=== PATIENT | female | born 1995 | race Caucasian/White ===

== ENCOUNTER 2020-04-15 09:08 | Emergency (ER) | payer OTHER ==
[2020-04-15 11:35] LABS: SARS-COV-2 RT PCR NEGATIVE (NEGATIVE)
--- NOTE | 2020-04-15 13:42 | ER ---
Nurse's Notes [facility] Name: Dolores Riojas Age: 24 yrs Sex: Female : 1995 Arrival Date: 04/15/2020 Time: 09:11 Bed 25 Private MD: Diagnosis: Acute upper respiratory infection, unspecified Presentation: 04/15 09:51 Chief complaint: Patient states: stuffy nose started Monday and fever last night Tmas dm5 101. Coronavirus screen: Client denies travel out of the [place] in the last 14 days. congestion, fever, Client presents with at least one sign or symptom that may indicate coronavirus-19. Standard/surgical mask placed on the client. Ebola Screen: Patient negative for fever greater than or equal to 101.5 degrees Fahrenheit, and additional compatible Ebola Virus Disease symptoms Patient denies exposure to infectious person. Patient denies travel to an Ebola-affected area in the 21 days before illness onset. No symptoms or risks identified at this time. Initial Sepsis Screen: Does the patient meet any 2 criteria? No. Patient's initial sepsis screen is negative. Does the patient have a suspected source of infection? No. Patient's initial sepsis screen is negative. Risk Assessment: Do you want to hurt yourself or someone else? Patient reports no desire to harm self or others. Onset of symptoms was April 12, 2020. 09:51 Method Of Arrival: Ambulatory dm5 09:51 Acuity: JUSTINE 3 dm5 Triage Assessment: 13:00 General: Appears in no apparent distress. Behavior is calm, cooperative. dm5 Historical: - Allergies: 09:59 Percocet; dm5 - Immunization history:: Adult Immunizations up to date. - Social history:: Smoking status: Patient denies any tobacco usage or history of. Screenin:00 Abuse screen: Denies threats or abuse. Denies injuries from another. Nutritional dm5 screening: No deficits noted. Tuberculosis screening: No symptoms or risk factors identified. Fall Risk None identified. Assessment: 12:00 Reassessment: Patient appears in no apparent distress at this time. No changes from dm5 previously documented assessment. Patient and/or family updated on plan of care and expected duration. Pain level reassessed. Patient is alert, oriented x 3, equal unlabored respirations, skin warm/dry/pink. Pain: Denies pain. Neuro: No deficits noted. Cardiovascular: No deficits noted. Respiratory: Airway is patent Respiratory effort is even, unlabored, Breath sounds are clear. EENT: Throat is pink. Vital Signs: 10:03 Resp 20; Temp 97.3; Pulse Ox 100% ; dm5 ED Course: 09:11 Patient arrived in ED. ds1 09:21 Brenton May MD is Attending Physician. kdr 09:59 Triage completed. dm5 12:00 Patient has correct armband on for positive identification. dm5 12:00 No provider procedures requiring assistance completed. Patient did not have IV access dm5 during this emergency room visit. 12:13 Claudia Callahan, RN is Primary Nurse. dm5 13:00 Arm band placed on Patient placed in an exam room. dm5 Administered Medications: No medications were administered Outcome: 12:00 Discharged to home ambulatory. dm5 12:00 Condition: good 12:00 Discharge instructions given to patient, Instructed on discharge instructions, Demonstrated understanding of instructions, follow-up care. 13:41 Discharge ordered by . kdr 14:40 Patient left the ED. dm5 Signatures: Claudia Callahan, RN RN dm5 Brenton May MD MD [facility] Eileen Yeboah ds1 Meka Zarate, RN RN iw Corrections: (The following items were deleted from the chart) 12:31 12:31 Arm band placed on iw iw
--- NOTE | 2020-04-15 13:42 | EDPHYS ---
Physician Documentation [facility] Name: Dolores Riojas Age: 24 yrs Sex: Female : 1995 Arrival Date: 04/15/2020 Time: 09:11 Bed 25 Private MD: ED Physician Brenton May HPI: 04/15 16:01 This 24 yrs old Female presents to ER via Ambulatory with complaints of kdr Cough, Sore Throat. 16:01 The patient or guardian reports cough, that is intermittent, described as mild, with no kdr sputum, flu symptoms, arthralgias, low-grade fever. Onset: The symptoms/episode began/occurred gradually, 1 week(s) ago. Severity of symptoms: At their worst the symptoms were mild, in the emergency department the symptoms have improved, mildly. Modifying factors: The symptoms are alleviated by nothing, the symptoms are aggravated by nothing. Associated signs and symptoms: Pertinent positives: fever. The patient has not experienced similar symptoms in the past. The patient has not recently seen a physician. Historical: - Allergies: 09:59 Percocet; dm5 - Immunization history:: Adult Immunizations up to date. - Social history:: Smoking status: Patient denies any tobacco usage or history of. ROS: 16:01 Constitutional: Negative for fever, chills, and weight loss, Eyes: Negative for injury, kdr pain, redness, and discharge, Neck: Negative for injury, pain, and swelling, Cardiovascular: Negative for chest pain, palpitations, and edema, Abdomen/GI: Negative for abdominal pain, nausea, vomiting, diarrhea, and constipation, Back: Negative for injury and pain, : Negative for injury, bleeding, discharge, and swelling, MS/Extremity: Negative for injury and deformity, Skin: Negative for injury, rash, and discoloration, Neuro: Negative for headache, weakness, numbness, tingling, and seizure activity. Psych: Negative for depression, anxiety, suicide ideation, homicidal ideation, and hallucinations, Allergy/Immunology: Negative for hives, rash, and allergies, Endocrine: Negative for neck swelling, polydipsia, polyuria, polyphagia, and marked weight changes, Hematologic/Lymphatic: Negative for swollen nodes, abnormal bleeding, and unusual bruising. 16:01 ENT: Positive for sore throat, Negative for injury or acute deformity, drainage from ear(s), ear pain, foreign body sensation. 16:01 Respiratory: Positive for cough, with no reported sputum, Negative for dyspnea on exertion, hemoptysis, orthopnea, pleurisy, sputum production, wheezing, acute changes. Exam: 16:01 Constitutional: This is a well developed, well nourished patient who is awake, alert, kdr and in no acute distress. Head/Face: Normocephalic, atraumatic. Eyes: Pupils equal round and reactive to light, extra-ocular motions intact. Lids and lashes normal. Conjunctiva and sclera are non-icteric and not injected. Cornea within normal limits. Periorbital areas with no swelling, redness, or edema. ENT: Nares patent. No nasal discharge, no septal abnormalities noted. Tympanic membranes are normal and external auditory canals are clear. Oropharynx with no redness, swelling, or masses, exudates, or evidence of obstruction, uvula midline. Mucous membranes moist. Neck: Trachea midline, no thyromegaly or masses palpated, and no cervical lymphadenopathy. Supple, full range of motion without nuchal rigidity, or vertebral point tenderness. No Meningismus. Chest/axilla: Normal chest wall appearance and motion. Nontender with no deformity. No lesions are appreciated. Cardiovascular: Regular rate and rhythm with a normal S1 and S2. No gallops, murmurs, or rubs. Normal PMI, no JVD. No pulse deficits. Respiratory: Lungs have equal breath sounds bilaterally, clear to auscultation and percussion. No rales, rhonchi or wheezes noted. No increased work of breathing, no retractions or nasal flaring. Abdomen/GI: Soft, non-tender, with normal bowel sounds. No distension or tympany. No guarding or rebound. No evidence of tenderness throughout. Back: No spinal tenderness. No costovertebral tenderness. Full range of motion. Skin: Warm, dry with normal turgor. Normal color with no rashes, no lesions, and no evidence of cellulitis. MS/ Extremity: Pulses equal, no cyanosis. Neurovascular intact. Full, normal range of motion. Neuro: Awake and alert, GCS 15, oriented to person, place, time, and situation. Cranial nerves II-XII grossly intact. Motor strength 5/5 in all extremities. Sensory grossly intact. Cerebellar exam normal. Normal gait. Psych: Awake, alert, with orientation to person, place and time. Behavior, mood, and affect are within normal limits. Vital Signs: 10:03 Resp 20; Temp 97.3; Pulse Ox 100% ; dm5 MDM: 13:41 Patient medically screened. kdr 16:01 Data reviewed: vital signs, nurses notes, lab test result(s). Counseling: I had a kdr detailed discussion with the patient and/or guardian regarding: the historical points, exam findings, and any diagnostic results supporting the discharge/admit diagnosis, lab results, the need for outpatient follow up. 04/15 10:00 Order name: Strep; Complete Time: 12:26 [facility] 04/15 11:23 Order name: Throat Culture [facility] 04/15 11:35 Order name: COVID-19/FLU A+B; Complete Time: 12:26 [facility] Administered Medications: No medications were administered Disposition: 04/15/20 13:41 Discharged to Home. Impression: Acute upper respiratory infection, unspecified. - Condition is Stable. - Discharge Instructions: Upper Respiratory Infection, Adult. - Work release form, Medication Reconciliation Form, Thank You Letter form. - Follow up: Private Physician; When: 2 - 3 days; Reason: If symptoms return, Further diagnostic work-up, Recheck today's complaints, Continuance of care, Re-evaluation by your physician. - Problem is new. - Symptoms have improved. Signatures: Dispatcher [employer] [facility] Claudia Callahan RN RN dm5 Brenton May MD MD [facility] Corrections: (The following items were deleted from the chart) 10:29 10:01 CORONAVIRUS+MR.LAB.BRZ ordered. [facility] 14:40 13:41 04/15/2020 13:41 Discharged to Home. Impression: Acute upper respiratory dm5 infection, unspecified. Condition is Stable. Forms are Medication Reconciliation Form, Thank You Letter, Antibiotic Education, Prescription Opioid Use. Follow up: Private Physician; When: 2 - 3 days; Reason: If symptoms return, Further diagnostic work-up, Recheck today's complaints, Continuance of care, Re-evaluation by your physician. Problem is new. Symptoms have improved. kdr
[2020-04-15 15:54] VITALS: TEMP 97.3; O2SAT 100
== END 2020-04-15 14:40 | disposition home or self-care (01) ==
LOC: ER 09:08
DX: J06.9 Acute upper respiratory infection, unspecified (principal); Z20.822 Contact with and (suspected) exposure to COVID-19; Z88.5 Allergy status to narcotic agent
CPT/HCPCS: 87070; 87081; 0240U; 99281